=== PATIENT | male | born 1930 | race Caucasian/White ===

== ENCOUNTER 2017-03-04 14:06 | Emergency (ER) | payer MEDICARE ==
[2015-11-23 23:54] VITALS: BMI 24.4
[~2017-03-04 14:06] MED LIST: ASPIRIN325 MG PO; ASPIRIN81 MG PO; COZAAR50 MG PO; FUNGAL CREAM; GARLIC1 CAP PO; ISOSORBIDE DINI30 MG PO; MUCUS RELIEF400 MG PO; NORVASC5 MG PO; PLAVIX75 MG PO; PRAVACHOL20 MG PO; PREDNISONE20 MG PO; PREDNISONE5 MG PO; PROVENTIL; PROVENTIL HFA6.7 GM INH; SYMBICORT 16010.2 GM INH; ZESTRIL10 MG PO; [UNRECOGNIZED DRUG - REMARK] PO
[2017-03-04 14:47] LABS: BASOPHILS 0.2 % (0-2); EOSINOPHILS 0.5 % (0-7); HEMATOCRIT 45.4 % (42.0-54.0); IMMATURE GRANULOCYTES 0.2 % (0-5); MCH 29.6 pg (26.0-34.0); MCV 89.5 fL (80.0-100.0); MEAN PLATELET VOLUME 11.4 fL (7.4-10.4); MONOCYTES 6.8 % (2-11); NEUTROPHILS 85.3 % (40-80); PLATELET COUNT 191 10x3/uL (130-400); RBC 5.07 10x6/uL (4.20-6.10); RDW 13.8 % (11.5-14.5); WBC 10.3 10x3/uL (4.8-10.8)
[2017-03-04 15:00] LABS: ALBUMIN 4.1 g/dL (3.4-5.0); ALKALINE PHOSPHATASE 83 U/L (46-116); ALT (SGPT) 22 U/L (10-68); BILIRUBIN - TOTAL 0.57 mg/dL (0.2-1.3); CALC OSMOLALITY 268 mosm/kg (275-300); CALCIUM 8.5 mg/dL (8.5-10.1); CARBON DIOXIDE 30.3 mmol/L (21.0-32.0); CHLORIDE - SERUM 100 mmol/L (98-107); CREATININE - SERUM 1.1 mg/dL (0.6-1.3); GLUCOSE 100 mg/dL (74-106); POTASSIUM - SERUM 4.7 mmol/L (3.5-5.1); SODIUM 135 mmol/L (136-145); UREA NITROGEN 10 mg/dL (7-18); eGFR NON AFRICAN AMERICAN 67 mL/min (90-120)
[2017-03-04 15:04] LABS: TROPONIN-I < 0.017 ng/mL (0.000-0.060)
== END 2017-03-04 16:04 | disposition home or self-care (01) ==
LOC: D.ER 14:06
PROVIDERS: Emergency Medicine
DX: R55 Syncope and collapse (principal); J45.909 Unspecified asthma, uncomplicated; R00.1 Bradycardia, unspecified; I45.10 Unspecified right bundle-branch block; I44.60 Unspecified fascicular block

== ENCOUNTER → 2017-03-17 08:53 | Outpatient (CLI) | payer MEDICARE ==
[2015-11-23 23:54] VITALS: BMI 24.4
== END | disposition home or self-care (01) ==
LOC: D.CT 08:53
DX: R93.5 Abnormal findings on diagnostic imaging of other abdominal regions, including retroperitoneum (principal)